=== PATIENT | female | born 1990 | race Caucasian/White ===

== ENCOUNTER 2022-08-17 13:04 | Inpatient (IN) | payer OTHER ==
[2022-08-17 14:17] VITALS: BMI 23.3
[2022-08-17] MEDS ORDERED: LOPERAMIDE HCL 2 MG CAPSULE PO PRN (15:56)
[2022-08-17] MEDS ORDERED: ACETAMINOPHEN 325 MG TABLET (FP) PO PRN (15:56)
[2022-08-17] MEDS ORDERED: DICYCLOMINE HCL 10 MG CAPSULE PO PRN (15:56)
[2022-08-17] MEDS ORDERED: MAGNESIUM CITRATE 300 ML BOTTLE PO PRN (15:56)
[2022-08-17] MEDS ORDERED: MAGNESIUM HYDROX 2400MG/30ML ORAL SUSPENSION 30 ML CUP PO PRN (15:56)
[2022-08-17] MEDS ORDERED: MAG HYDROX/AL HYDROX/SIMETH 30 ML UNIT-DOSE CUP PO PRN (15:56)
[2022-08-17] MEDS ORDERED: IBUPROFEN 400 MG TABLET (FP) PO PRN (15:56)
[2022-08-17] MEDS ORDERED: BENZOCAINE/MENTHOL (CHLORASEPTIC ) LOZENGE MM PRN (15:56)
[2022-08-17] MEDS ORDERED: ONDANSETRON *ODT* 4 MG TABLET SL PRN (15:56)
[2022-08-17] MEDS ORDERED: BISMUTH SUBSALICYLATE 524 MG/30 ML PO PRN (15:56)
[2022-08-17] MEDS ORDERED: NALOXONE HCL (KLOXXADO) 8 MG SPRAY NS PRN (15:56)
[2022-08-17] MEDS ORDERED: methaDONE HCL 10 MG TABLET (FOR DETOX USE ONLY) PO ONE (16:27)
[2022-08-17] MEDS ORDERED: cloNIDine HCL 0.1 MG TABLET PO PRN (16:27)
[2022-08-17] MEDS ORDERED: chlordiazePOXIDE HCL 25 MG CAPSULE PO PRN (16:27)
[2022-08-17] MEDS: METHOCARBAMOL 500 MG TABLET PO PRN (17:18)
[2022-08-17] MEDS: hydrOXYzine PAMOATE 25 MG CAPSULE (FP) PO SCH ×2 (17:18→22:15)
[2022-08-17] MEDS: chlordiazePOXIDE HCL 25 MG CAPSULE PO SCH ×2 (17:20→22:15)
[2022-08-17] MEDS: PRENATAL VITAMINS W/ FOLIC ACID TABLET (FP) PO SCH (17:25)
[2022-08-17] MEDS: NICOTINE 21 MG/24 HOURS TOPICAL PATCH TD SCH (18:08)
[2022-08-17] MEDS: NICOTINE 10 MG CARTRIDGE (INHALER) IH PRN (18:10)
[2022-08-17] MEDS ORDERED: GABAPENTIN 100 MG CAPSULE PO SCH (22:00)
[2022-08-17] MEDS: GABAPENTIN 300 MG CAPSULE PO SCH (22:15)
[2022-08-17] MEDS: THIAMINE HCL 100 MG TABLET (FP) PO SCH (22:15)
[2022-08-17] MEDS: MELATONIN 5 MG TABLETS PO SCH (22:15)
[2022-08-18] MEDS: hydrOXYzine PAMOATE 25 MG CAPSULE (FP) PO SCH ×4 (05:21→18:35)
[2022-08-18] MEDS: chlordiazePOXIDE HCL 25 MG CAPSULE PO SCH ×4 (05:21→22:57)
[2022-08-18] MEDS: GABAPENTIN 300 MG CAPSULE PO SCH ×3 (05:21→22:56)
[2022-08-18] MEDS: PRENATAL VITAMINS W/ FOLIC ACID TABLET (FP) PO SCH (10:19)
[2022-08-18] MEDS: NICOTINE 21 MG/24 HOURS TOPICAL PATCH TD SCH (10:21)
[2022-08-18 12:47] LABS: HEMOGLOBIN 10.5 GM/dL (10.7-15.3); MEAN CELL VOLUME 88.1 fl (80-96); MEAN PLT VOLUME 7.8 fl (7.5-11.1); PLATELET COUNT 356 10^3/uL (134-434); RBC 3.63 M/mm3 (3.60-5.2); RDW 14.9 % (11.6-15.6); WHITE BLOOD COUNT 5.5 K/mm3 (4.0-10.0)
[2022-08-18 12:59] LABS: ALBUMIN 2.7 g/dl (3.4-5.0); BLOOD UREA NITROGEN 13.4 mg/dL (7-18); CALCIUM 8.6 mg/dL (8.5-10.1)
[2022-08-18 13:02] LABS: CREATININE 0.7 mg/dL (0.55-1.3)
[2022-08-18 13:04] LABS: BILIRUBIN,TOTAL 0.1 mg/dL (0.2-1); TOT PROT 5.9 g/dl (6.4-8.2)
[2022-08-18] MEDS: METHOCARBAMOL 500 MG TABLET PO PRN (13:28)
[2022-08-18] MEDS: NICOTINE POLACRILEX 2 MG GUM BUC PRN (17:58)
[2022-08-18] MEDS ORDERED: HYDROXYCHLOROQUINE SO4 200 MG TABLET (FP) PO SCH ×2 (18:45)
[2022-08-18] MEDS: THIAMINE HCL 100 MG TABLET (FP) PO SCH (22:56)
[2022-08-18] MEDS: HYDROXYCHLOROQUINE SO4 200 MG TABLET (FP) PO SCH (22:57)
[2022-08-18] MEDS: MELATONIN 5 MG TABLETS PO SCH (22:57)
[2022-08-19] MEDS: GABAPENTIN 300 MG CAPSULE PO SCH ×3 (05:34→22:09)
[2022-08-19] MEDS: chlordiazePOXIDE HCL 25 MG CAPSULE PO SCH ×4 (05:34→22:09)
[2022-08-19] MEDS: METHOCARBAMOL 500 MG TABLET PO PRN ×3 (05:36→18:44)
[2022-08-19] MEDS ORDERED: methaDONE HCL 10 MG TABLET (FOR DETOX USE ONLY) PO ONE (10:00)
[2022-08-19] MEDS: PRENATAL VITAMINS W/ FOLIC ACID TABLET (FP) PO SCH (10:36)
[2022-08-19] MEDS: HYDROXYCHLOROQUINE SO4 200 MG TABLET (FP) PO SCH (10:37)
[2022-08-19] MEDS: NICOTINE 21 MG/24 HOURS TOPICAL PATCH TD SCH (10:38)
[2022-08-19] MEDS ORDERED: LINEZOLID 600 MG TABLET (RESTRICTED TO ID) PO SCH (11:30)
[2022-08-19] MEDS: NICOTINE POLACRILEX 2 MG GUM BUC PRN ×2 (11:36→15:32)
[2022-08-19] MEDS: MELATONIN 5 MG TABLETS PO SCH (22:09)
[2022-08-19] MEDS: THIAMINE HCL 100 MG TABLET (FP) PO SCH (22:09)
[2022-08-19] MEDS: LINEZOLID 600 MG TABLET (RESTRICTED TO ID) PO SCH (22:10)
[2022-08-20] MEDS: chlordiazePOXIDE HCL 10 MG CAPSULE PO SCH ×4 (05:43→22:45)
[2022-08-20] MEDS: GABAPENTIN 300 MG CAPSULE PO SCH ×3 (05:43→22:45)
[2022-08-20] MEDS: IBUPROFEN 600 MG TABLET (FP) PO PRN ×2 (10:22→19:00)
[2022-08-20] MEDS: METHOCARBAMOL 500 MG TABLET PO PRN ×2 (10:22→17:32)
[2022-08-20] MEDS: NICOTINE 21 MG/24 HOURS TOPICAL PATCH TD SCH (10:22)
[2022-08-20] MEDS: PRENATAL VITAMINS W/ FOLIC ACID TABLET (FP) PO SCH (10:22)
[2022-08-20] MEDS: HYDROXYCHLOROQUINE SO4 200 MG TABLET (FP) PO SCH (10:22)
[2022-08-20] MEDS: LINEZOLID 600 MG TABLET (RESTRICTED TO ID) PO SCH ×2 (10:22→22:46)
[2022-08-20] MEDS: NICOTINE 10 MG CARTRIDGE (INHALER) IH PRN (11:05)
[2022-08-20] MEDS: ACETAMINOPHEN 325 MG TABLET (FP) PO PRN (11:11)
[2022-08-20] MEDS: chlordiazePOXIDE HCL 10 MG CAPSULE PO PRN ×2 (12:17→19:04)
[2022-08-20] MEDS: MELATONIN 5 MG TABLETS PO SCH (22:45)
[2022-08-20] MEDS: THIAMINE HCL 100 MG TABLET (FP) PO SCH (22:45)
[2022-08-21] MEDS: GABAPENTIN 300 MG CAPSULE PO SCH ×3 (05:34→22:23)
[2022-08-21] MEDS: chlordiazePOXIDE HCL 10 MG CAPSULE PO SCH ×2 (05:34→17:08)
[2022-08-21] MEDS ORDERED: methaDONE HCL 10 MG TABLET (FOR DETOX USE ONLY) PO ONE (10:00)
[2022-08-21] MEDS: LINEZOLID 600 MG TABLET (RESTRICTED TO ID) PO SCH ×2 (10:12→22:23)
[2022-08-21] MEDS: METHOCARBAMOL 500 MG TABLET PO PRN ×2 (10:13→17:11)
[2022-08-21] MEDS: HYDROXYCHLOROQUINE SO4 200 MG TABLET (FP) PO SCH (10:13)
[2022-08-21] MEDS: ACETAMINOPHEN 325 MG TABLET (FP) PO PRN (10:14)
[2022-08-21] MEDS: NICOTINE 21 MG/24 HOURS TOPICAL PATCH TD SCH (10:16)
[2022-08-21] MEDS: NICOTINE POLACRILEX 2 MG GUM BUC PRN (10:30)
[2022-08-21] MEDS: PRENATAL VITAMINS W/ FOLIC ACID TABLET (FP) PO SCH (10:42)
[2022-08-21] MEDS: IBUPROFEN 600 MG TABLET (FP) PO PRN (13:51)
[2022-08-21] MEDS: hydrOXYzine PAMOATE 25 MG CAPSULE (FP) PO SCH (22:23)
[2022-08-21] MEDS: MELATONIN 5 MG TABLETS PO SCH (22:23)
[2022-08-21] MEDS: THIAMINE HCL 100 MG TABLET (FP) PO SCH (22:23)
[2022-08-21] MEDS ORDERED: MELATONIN 5 MG TABLETS PO PRN (23:30)
[2022-08-21] MEDS ORDERED: MELATONIN 5 MG TABLETS PO ONE (23:31)
[2022-08-22] MEDS: METHOCARBAMOL 500 MG TABLET PO PRN ×2 (00:04→10:02)
[2022-08-22] MEDS ORDERED: cloNIDine HCL 0.1 MG TABLET PO ONE (01:35)
[2022-08-22] MEDS ORDERED: chlordiazePOXIDE HCL 10 MG CAPSULE PO ONE (05:00)
[2022-08-22] MEDS: GABAPENTIN 300 MG CAPSULE PO SCH (05:33)
[2022-08-22 06:04] VITALS: TEMP 97.8
[2022-08-22 09:22] VITALS: BP 122/81; PULSE 68; RESP 17
[2022-08-22] MEDS: PRENATAL VITAMINS W/ FOLIC ACID TABLET (FP) PO SCH (10:01)
[2022-08-22] MEDS: LINEZOLID 600 MG TABLET (RESTRICTED TO ID) PO SCH (10:02)
[2022-08-22] MEDS: HYDROXYCHLOROQUINE SO4 200 MG TABLET (FP) PO SCH (10:02)
[2022-08-22] MEDS: NICOTINE 21 MG/24 HOURS TOPICAL PATCH TD SCH (10:04)
== END 2022-08-22 10:31 | disposition home or self-care (01) | DRG 773 ==
LOC: YASAS 13:04 → Y6N 16:22
PROVIDERS: ADMIT Allergy & Immunology; ATTEND Allergy & Immunology
PROC: HZ2ZZZZ Detoxification Services for Substance Abuse Treatment (ICD-10-PCS; principal; 2022-08-17)
DX: F11.23 Opioid dependence with withdrawal (principal); F13.20 Sedative, hypnotic or anxiolytic dependence, uncomplicated; F14.20 Cocaine dependence, uncomplicated; F15.10 Other stimulant abuse, uncomplicated; F17.210 Nicotine dependence, cigarettes, uncomplicated; F41.8 Other specified anxiety disorders; L10.0 Pemphigus vulgaris; M32.9 Systemic lupus erythematosus, unspecified; M06.9 Rheumatoid arthritis, unspecified; Z88.1 Allergy status to other antibiotic agents; Z91.013 Allergy to seafood
CPT/HCPCS: 36415; 71046-TC-FY; 80053; 81025; 85027; 86780; 93005; 93010; C9803-CS; U0003; U0005

== ENCOUNTER 2022-12-10 14:42 | Inpatient (IN) | payer OTHER ==
[2022-12-10 15:22] VITALS: BMI 25.0
[2022-12-10] MEDS ORDERED: NICOTINE POLACRILEX 2 MG GUM BUC PRN (17:32)
[2022-12-10] MEDS ORDERED: IBUPROFEN 400 MG TABLET (FP) PO PRN (17:32)
[2022-12-10] MEDS ORDERED: LOPERAMIDE HCL 2 MG CAPSULE PO PRN (17:32)
[2022-12-10] MEDS ORDERED: hydrOXYzine PAMOATE 25 MG CAPSULE (FP) PO PRN (17:32)
[2022-12-10] MEDS ORDERED: ACETAMINOPHEN 325 MG TABLET (FP) PO PRN ×2 (17:32)
[2022-12-10] MEDS ORDERED: ONDANSETRON *ODT* 4 MG TABLET SL PRN (17:32)
[2022-12-10] MEDS ORDERED: DICYCLOMINE HCL 10 MG CAPSULE PO PRN (17:32)
[2022-12-10] MEDS ORDERED: BENZOCAINE/MENTHOL (CHLORASEPTIC ) LOZENGE MM PRN (17:32)
[2022-12-10] MEDS ORDERED: cloNIDine HCL 0.1 MG TABLET PO PRN (17:32)
[2022-12-10] MEDS ORDERED: IBUPROFEN 600 MG TABLET (FP) PO PRN (17:32)
[2022-12-10] MEDS ORDERED: NICOTINE 10 MG CARTRIDGE (INHALER) IH PRN (17:32)
[2022-12-10] MEDS ORDERED: NALOXONE HCL (KLOXXADO) 8 MG SPRAY NS PRN (17:32)
[2022-12-10] MEDS ORDERED: MAGNESIUM HYDROX 2400MG/30ML ORAL SUSPENSION 30 ML CUP PO PRN (17:32)
[2022-12-10] MEDS ORDERED: MAG HYDROX/AL HYDROX/SIMETH 30 ML UNIT-DOSE CUP PO PRN (17:32)
[2022-12-10] MEDS ORDERED: POLYETHYLENE GLYCOL (HEALTHYLAX) 3350 17 GM PACKET PO PRN (17:32)
[2022-12-10] MEDS ORDERED: BISMUTH SUBSALICYLATE 524 MG/30 ML PO PRN (17:32)
[2022-12-10] MEDS: diazePAM 5 MG TABLET PO PRN (18:22)
[2022-12-10] MEDS ORDERED: methaDONE HCL 10 MG TABLET (FOR DETOX USE ONLY) PO ONE (19:00)
[2022-12-10] MEDS: METHOCARBAMOL 500 MG TABLET PO PRN (21:24)
[2022-12-10] MEDS ORDERED: MELATONIN 5 MG TABLETS PO SCH (22:00)
[2022-12-10] MEDS ORDERED: THIAMINE HCL 100 MG TABLET (FP) PO SCH (22:00)
[2022-12-11] MEDS: diazePAM 5 MG TABLET PO PRN (09:35)
[2022-12-11] MEDS: METHOCARBAMOL 500 MG TABLET PO PRN (09:35)
[2022-12-11 09:38] VITALS: BP 123/78; PULSE 80; RESP 18; TEMP 97.5
[2022-12-11] MEDS ORDERED: PRENATAL VITAMINS W/ FOLIC ACID TABLET (FP) PO SCH (10:00)
[2022-12-11] MEDS ORDERED: NICOTINE 21 MG/24 HOURS TOPICAL PATCH TD SCH (10:00)
[2022-12-11 11:24] LABS: HEMATOCRIT 30.9 % (32.4-45.2); HEMOGLOBIN 10.5 GM/dL (10.7-15.3); MCHC 33.9 g/dl (32.0-36.0); MEAN CELL VOLUME 85.5 fl (80-96); MEAN PLT VOLUME 7.8 fl (7.5-11.1); PLATELET COUNT 389 10^3/uL (134-434); RBC 3.61 M/mm3 (3.60-5.2); RDW 15.4 % (11.6-15.6); WHITE BLOOD COUNT 5.8 K/mm3 (4.0-10.0)
[2022-12-11 11:56] LABS: ALBUMIN 3.1 g/dl (3.4-5.0); BLOOD UREA NITROGEN 10.5 mg/dL (7-18); CALCIUM 8.6 mg/dL (8.5-10.1)
[2022-12-11 11:59] LABS: CREATININE 0.8 mg/dL (0.55-1.3)
[2022-12-11 12:01] LABS: TOT PROT 6.4 g/dl (6.4-8.2)
[2022-12-11 12:03] LABS: BILIRUBIN,TOTAL 0.5 mg/dL (0.2-1)
[2022-12-12] MEDS ORDERED: methaDONE HCL 10 MG TABLET (FOR DETOX USE ONLY) PO ONE (10:00)
[2022-12-14] MEDS ORDERED: methaDONE HCL 10 MG TABLET (FOR DETOX USE ONLY) PO ONE (10:00)
== END 2022-12-11 11:17 | disposition left against medical advice (07) | DRG 770 ==
LOC: YASAS 14:42 → Y6N 17:46
PROVIDERS: ADMIT Allergy & Immunology; ATTEND Surgery
PROC: HZ2ZZZZ Detoxification Services for Substance Abuse Treatment (ICD-10-PCS; principal; 2022-12-10)
DX: F11.23 Opioid dependence with withdrawal (principal); F14.20 Cocaine dependence, uncomplicated; F17.210 Nicotine dependence, cigarettes, uncomplicated; F51.05 Insomnia due to other mental disorder; F41.9 Anxiety disorder, unspecified; F32.A Depression, unspecified; M32.9 Systemic lupus erythematosus, unspecified; M06.9 Rheumatoid arthritis, unspecified; R76.11 Nonspecific reaction to tuberculin skin test without active tuberculosis; Z28.310 Unvaccinated for COVID-19; Z28.9 Immunization not carried out for unspecified reason; Z88.1 Allergy status to other antibiotic agents; Z91.013 Allergy to seafood
CPT/HCPCS: 36415; 80053; 81025; 85027; 86780; 87811; C9803-CS; U0003; U0005

== ENCOUNTER 2023-01-08 19:02 | Inpatient (IN) | payer OTHER ==
[2023-01-08 20:38] VITALS: BMI 25.9
[2023-01-08] MEDS ORDERED: IBUPROFEN 600 MG TABLET (FP) PO PRN (21:29)
[2023-01-08] MEDS ORDERED: LOPERAMIDE HCL 2 MG CAPSULE PO PRN (21:29)
[2023-01-08] MEDS ORDERED: MAG HYDROX/AL HYDROX/SIMETH 30 ML UNIT-DOSE CUP PO PRN (21:29)
[2023-01-08] MEDS ORDERED: cloNIDine HCL 0.1 MG TABLET PO PRN (21:29)
[2023-01-08] MEDS ORDERED: BISMUTH SUBSALICYLATE 524 MG/30 ML PO PRN (21:29)
[2023-01-08] MEDS ORDERED: ACETAMINOPHEN 325 MG TABLET (FP) PO PRN ×2 (21:29)
[2023-01-08] MEDS ORDERED: BENZOCAINE/MENTHOL (CHLORASEPTIC ) LOZENGE MM PRN (21:29)
[2023-01-08] MEDS ORDERED: DICYCLOMINE HCL 10 MG CAPSULE PO PRN (21:29)
[2023-01-08] MEDS ORDERED: POLYETHYLENE GLYCOL (HEALTHYLAX) 3350 17 GM PACKET PO PRN (21:29)
[2023-01-08] MEDS ORDERED: ONDANSETRON *ODT* 4 MG TABLET SL PRN (21:29)
[2023-01-08] MEDS ORDERED: hydrOXYzine PAMOATE 25 MG CAPSULE (FP) PO PRN (21:29)
[2023-01-08] MEDS ORDERED: NICOTINE 10 MG CARTRIDGE (INHALER) IH PRN (21:29)
[2023-01-08] MEDS ORDERED: MAGNESIUM HYDROX 2400MG/30ML ORAL SUSPENSION 30 ML CUP PO PRN (21:29)
[2023-01-08] MEDS ORDERED: NALOXONE HCL (KLOXXADO) 8 MG SPRAY NS PRN (21:29)
[2023-01-08] MEDS ORDERED: IBUPROFEN 400 MG TABLET (FP) PO PRN (21:29)
[2023-01-08] MEDS ORDERED: methaDONE HCL 10 MG TABLET (FOR DETOX USE ONLY) PO ONE (21:45)
[2023-01-08] MEDS ORDERED: methaDONE HCL 10 MG TABLET (FOR DETOX USE ONLY) ONE (22:00)
[2023-01-08] MEDS: THIAMINE HCL 100 MG TABLET (FP) PO SCH (23:01)
[2023-01-08] MEDS: MELATONIN 5 MG TABLETS PO SCH (23:03)
[2023-01-09] MEDS ORDERED: NICOTINE 21 MG/24 HOURS TOPICAL PATCH TD SCH (10:00)
[2023-01-09] MEDS ORDERED: PRENATAL VITAMINS W/ FOLIC ACID TABLET (FP) PO SCH (10:00)
[2023-01-09] MEDS: METHOCARBAMOL 500 MG TABLET PO PRN ×2 (10:18→17:50)
[2023-01-09] MEDS: diazePAM 5 MG TABLET PO PRN ×2 (10:18→17:58)
[2023-01-09 12:12] LABS: HEMATOCRIT 32.3 % (32.4-45.2); HEMOGLOBIN 11.2 GM/dL (10.7-15.3); MCH 29.1 pg (25.7-33.7); MCHC 34.6 g/dl (32.0-36.0); MEAN CELL VOLUME 84.1 fl (80-96); MEAN PLT VOLUME 7.2 fl (7.5-11.1); PLATELET COUNT 454 10^3/uL (134-434); RBC 3.83 M/mm3 (3.60-5.2); RDW 15.1 % (11.6-15.6); WHITE BLOOD COUNT 8.7 K/mm3 (4.0-10.0)
[2023-01-09 12:15] LABS: CALCIUM 9.2 mg/dL (8.5-10.1)
[2023-01-09 12:16] LABS: ALBUMIN 3.4 g/dl (3.4-5.0); BLOOD UREA NITROGEN 6.9 mg/dL (7-18)
[2023-01-09 12:17] LABS: CREATININE 0.8 mg/dL (0.55-1.3)
[2023-01-09 12:18] LABS: BILIRUBIN,TOTAL 0.2 mg/dL (0.2-1); TOT PROT 7.3 g/dl (6.4-8.2)
[2023-01-09] MEDS ORDERED: HYDROXYCHLOROQUINE SO4 200 MG TABLET (FP) PO SCH (12:30)
[2023-01-09] MEDS: NICOTINE POLACRILEX 2 MG GUM BUC PRN ×2 (13:22→17:59)
[2023-01-09] MEDS: GABAPENTIN 300 MG CAPSULE PO SCH ×2 (14:02→22:42)
[2023-01-09] MEDS: THIAMINE HCL 100 MG TABLET (FP) PO SCH (22:42)
[2023-01-09] MEDS: MELATONIN 5 MG TABLETS PO SCH (22:42)
[2023-01-10] MEDS: GABAPENTIN 300 MG CAPSULE PO SCH (05:19)
[2023-01-10] MEDS: diazePAM 5 MG TABLET PO PRN (05:22)
[2023-01-10 06:42] VITALS: BP 109/68; PULSE 73; RESP 17; TEMP 97.3
[2023-01-10] MEDS ORDERED: methaDONE HCL 10 MG TABLET (FOR DETOX USE ONLY) PO ONE (10:00)
[2023-01-12] MEDS ORDERED: methaDONE HCL 10 MG TABLET (FOR DETOX USE ONLY) PO ONE (10:00)
== END 2023-01-10 09:41 | disposition left against medical advice (07) | DRG 770 ==
LOC: YASAS 19:02 → Y6N 21:41
PROVIDERS: ADMIT Allergy & Immunology; ATTEND Surgery
PROC: HZ2ZZZZ Detoxification Services for Substance Abuse Treatment (ICD-10-PCS; principal; 2023-01-08)
DX: F11.23 Opioid dependence with withdrawal (principal); F13.20 Sedative, hypnotic or anxiolytic dependence, uncomplicated; F14.20 Cocaine dependence, uncomplicated; F17.210 Nicotine dependence, cigarettes, uncomplicated; F19.282 Other psychoactive substance dependence with psychoactive substance-induced sleep disorder; F31.9 Bipolar disorder, unspecified; M06.9 Rheumatoid arthritis, unspecified; K25.9 Gastric ulcer, unspecified as acute or chronic, without hemorrhage or perforation; Z88.1 Allergy status to other antibiotic agents; Z91.013 Allergy to seafood
CPT/HCPCS: 36415; 80053; 81025; 85027; 86780; C9803-CS; U0003; U0005

== ENCOUNTER 2023-12-15 11:26 | Inpatient (IN) | payer OTHER ==
[2023-12-15 11:51] VITALS: BMI 24.1
[2023-12-15] MEDS ORDERED: guaiFENesin 600 MG TABLET.ER (FP) PO PRN (12:15)
[2023-12-15] MEDS ORDERED: DICYCLOMINE HCL 10 MG CAPSULE PO PRN (12:15)
[2023-12-15] MEDS ORDERED: NICOTINE POLACRILEX 2 MG LOZENGE BC PRN (12:15)
[2023-12-15] MEDS ORDERED: NALOXONE HCL 0.4 MG/ML VIAL IM PRN (12:15)
[2023-12-15] MEDS ORDERED: BISMUTH SUBSALICYLATE 524 MG/30 ML PO PRN (12:15)
[2023-12-15] MEDS ORDERED: ONDANSETRON *ODT* 4 MG TABLET SL PRN (12:15)
[2023-12-15] MEDS ORDERED: ACETAMINOPHEN 325 MG TABLET (FP) PO PRN (12:15)
[2023-12-15] MEDS ORDERED: METHOCARBAMOL 500 MG TABLET PO PRN (12:15)
[2023-12-15] MEDS ORDERED: LOPERAMIDE HCL 2 MG CAPSULE PO PRN (12:15)
[2023-12-15] MEDS ORDERED: NALOXONE HCL (KLOXXADO) 8 MG SPRAY NS PRN (12:15)
[2023-12-15] MEDS ORDERED: BENZONATATE 200 MG CAPSULE PO PRN (12:15)
[2023-12-15] MEDS ORDERED: MAG HYDROX/AL HYDROX/SIMETH 30 ML UNIT-DOSE CUP PO PRN (12:15)
[2023-12-15] MEDS ORDERED: MAGNESIUM HYDROX 2400MG/30ML ORAL SUSPENSION 30 ML CUP PO PRN (12:15)
[2023-12-15] MEDS ORDERED: IBUPROFEN 600 MG TABLET (FP) PO PRN (12:15)
[2023-12-15] MEDS ORDERED: IBUPROFEN 400 MG TABLET (FP) PO PRN (12:15)
[2023-12-15] MEDS ORDERED: P-EPHED 60MG/TRIPROLIDI 2.5MG TABLET PO PRN (12:15)
[2023-12-15] MEDS ORDERED: BENZOCAINE/MENTHOL (CHLORASEPTIC ) LOZENGE MM PRN (12:15)
[2023-12-15] MEDS ORDERED: POLYETHYLENE GLYCOL (HEALTHYLAX) 3350 17 GM PACKET PO PRN (12:15)
[2023-12-15] MEDS: HYDROXYCHLOROQUINE SO4 200 MG TABLET (FP) PO SCH ×2 (14:46→22:25)
[2023-12-15] MEDS ORDERED: methaDONE HCL 10 MG TABLET (FOR DETOX USE ONLY) PO ONE (17:22)
[2023-12-15] MEDS ORDERED: cloNIDine HCL 0.1 MG TABLET PO PRN (17:22)
[2023-12-15] MEDS: diazePAM 5 MG TABLET PO PRN ×2 (18:07→22:26)
[2023-12-15] MEDS: MELATONIN 5 MG TABLETS PO SCH (22:23)
[2023-12-15] MEDS: THIAMINE HCL 100 MG TABLET (FP) PO SCH (22:24)
[2023-12-15] MEDS: GABAPENTIN 300 MG CAPSULE PO SCH (22:27)
[2023-12-16] MEDS: GABAPENTIN 300 MG CAPSULE PO SCH ×2 (09:49→22:46)
[2023-12-16] MEDS: HYDROXYCHLOROQUINE SO4 200 MG TABLET (FP) PO SCH ×2 (09:50→22:46)
[2023-12-16] MEDS: PRENATAL VITAMINS W/ FOLIC ACID TABLET (FP) PO SCH (09:51)
[2023-12-16 10:39] LABS: HEMATOCRIT 33.7 % (32.4-45.2); HEMOGLOBIN 10.8 GM/dL (10.7-15.3); MCH 27.1 pg (25.7-33.7); MEAN CELL VOLUME 84.7 fl (80-96); MEAN PLT VOLUME 7.5 fl (7.5-11.1); PLATELET COUNT 376 10^3/uL (134-434); RBC 3.97 M/mm3 (3.60-5.2); WHITE BLOOD COUNT 6.9 K/mm3 (4.0-10.0)
[2023-12-16 11:17] LABS: POTASSIUM 4.4 mmol/L (3.5-5.1)
[2023-12-16 11:39] LABS: CALCIUM 8.8 mg/dL (8.5-10.1)
[2023-12-16 11:40] LABS: BLOOD UREA NITROGEN 12.9 mg/dL (7-18)
[2023-12-16 11:44] LABS: BILIRUBIN,TOTAL 0.2 mg/dL (0.2-1); CREATININE 0.8 mg/dL (0.55-1.3)
[2023-12-16 11:45] LABS: TOT PROT 6.4 g/dl (6.4-8.2)
[2023-12-16] MEDS: diazePAM 5 MG TABLET PO PRN ×3 (13:09→22:47)
[2023-12-16] MEDS: THIAMINE HCL 100 MG TABLET (FP) PO SCH (22:46)
[2023-12-16] MEDS: MELATONIN 5 MG TABLETS PO SCH (22:46)
[2023-12-17 09:44] VITALS: PULSE 90; RESP 18
[2023-12-17] MEDS: GABAPENTIN 300 MG CAPSULE PO SCH (09:46)
[2023-12-17] MEDS: PRENATAL VITAMINS W/ FOLIC ACID TABLET (FP) PO SCH (09:46)
[2023-12-17] MEDS: HYDROXYCHLOROQUINE SO4 200 MG TABLET (FP) PO SCH (09:47)
[2023-12-17] MEDS: diazePAM 5 MG TABLET PO PRN (09:48)
[2023-12-17] MEDS ORDERED: methaDONE HCL 10 MG TABLET (FOR DETOX USE ONLY) PO ONE (10:00)
[2023-12-17 13:22] VITALS: BP 138/83; TEMP 97.3
[2023-12-19] MEDS ORDERED: methaDONE HCL 10 MG TABLET (FOR DETOX USE ONLY) PO ONE (10:00)
== END 2023-12-17 14:15 | disposition left against medical advice (07) | DRG 770 ==
LOC: YASAS 11:26 → Y6N 12:45
PROVIDERS: ADMIT Allergy & Immunology; ATTEND Allergy & Immunology
PROC: HZ2ZZZZ Detoxification Services for Substance Abuse Treatment (ICD-10-PCS; principal; 2023-12-15)
DX: F11.23 Opioid dependence with withdrawal (principal); F14.20 Cocaine dependence, uncomplicated; F13.20 Sedative, hypnotic or anxiolytic dependence, uncomplicated; F17.210 Nicotine dependence, cigarettes, uncomplicated; F32.A Depression, unspecified; M06.00 Rheumatoid arthritis without rheumatoid factor, unspecified site; Z20.822 Contact with and (suspected) exposure to COVID-19; Z28.310 Unvaccinated for COVID-19; Z28.9 Immunization not carried out for unspecified reason; Z87.11 Personal history of peptic ulcer disease; Z86.11 Personal history of tuberculosis; Z56.0 Unemployment, unspecified; Z59.00 Homelessness unspecified; Z88.1 Allergy status to other antibiotic agents; Z88.8 Allergy status to other drugs, medicaments and biological substances
CPT/HCPCS: 36415; 80053; 81025; 85027; 86780; 87635; 87811; Q0162

== ENCOUNTER 2024-01-28 21:50 | Inpatient (IN) | payer OTHER ==
[2024-01-28 22:31] VITALS: BMI 24.1
[2024-01-29] MEDS ORDERED: guaiFENesin 600 MG TABLET.ER (FP) PO PRN (00:27)
[2024-01-29] MEDS ORDERED: ONDANSETRON *ODT* 4 MG TABLET SL PRN (00:27)
[2024-01-29] MEDS ORDERED: NICOTINE POLACRILEX 2 MG LOZENGE BC PRN (00:27)
[2024-01-29] MEDS ORDERED: LOPERAMIDE HCL 2 MG CAPSULE PO PRN (00:27)
[2024-01-29] MEDS ORDERED: MAG HYDROX/AL HYDROX/SIMETH 30 ML UNIT-DOSE CUP PO PRN (00:27)
[2024-01-29] MEDS ORDERED: NALOXONE HCL 0.4 MG/ML VIAL IM PRN (00:27)
[2024-01-29] MEDS ORDERED: NALOXONE HCL (KLOXXADO) 8 MG SPRAY NS PRN (00:27)
[2024-01-29] MEDS ORDERED: BENZONATATE 200 MG CAPSULE PO PRN (00:27)
[2024-01-29] MEDS ORDERED: MAGNESIUM HYDROX 2400MG/30ML ORAL SUSPENSION 30 ML CUP PO PRN (00:27)
[2024-01-29] MEDS ORDERED: BENZOCAINE/MENTHOL (CHLORASEPTIC ) LOZENGE MM PRN (00:27)
[2024-01-29] MEDS ORDERED: POLYETHYLENE GLYCOL (HEALTHYLAX) 3350 17 GM PACKET PO PRN (00:27)
[2024-01-29] MEDS ORDERED: cloNIDine HCL 0.1 MG TABLET PO PRN (09:55)
[2024-01-29] MEDS: methaDONE HCL 10 MG TABLET (FOR DETOX USE ONLY) PO ONE (10:21)
[2024-01-29] MEDS: diazePAM 5 MG TABLET PO SCH (10:21)
[2024-01-29] MEDS: NICOTINE 21 MG/24 HOURS TOPICAL PATCH TD SCH (10:21)
[2024-01-29] MEDS: PRENATAL VITAMINS W/ FOLIC ACID TABLET (FP) PO SCH (10:21)
[2024-01-29 12:00] LABS: HEMATOCRIT 28.6 % (32.4-45.2); HEMOGLOBIN 9.5 GM/dL (10.7-15.3); MCH 26.2 pg (25.7-33.7); MCHC 33.3 g/dl (32.0-36.0); MEAN CELL VOLUME 78.5 fl (80-96); MEAN PLT VOLUME 7.4 fl (7.5-11.1); PLATELET COUNT 396 10^3/uL (134-434); RBC 3.64 M/mm3 (3.60-5.2); RDW 15.4 % (11.6-15.6); WHITE BLOOD COUNT 5.8 K/mm3 (4.0-10.0)
[2024-01-29 12:19] LABS: CHLORIDE 107 mmol/L (98-107); POTASSIUM 4.3 mmol/L (3.5-5.1); SODIUM 141 mmol/L (136-145)
[2024-01-29 12:24] LABS: ALBUMIN 2.8 g/dl (3.4-5.0); ANION GAP 5 mmol/L (4-13); BLOOD UREA NITROGEN 11.8 mg/dL (7-18); CALCIUM 8.4 mg/dL (8.5-10.1); CO2 29 mmol/L (21-32); GLUCOSE,RANDOM 92 mg/dL (74-106)
[2024-01-29 12:27] LABS: CREATININE 0.8 mg/dL (0.55-1.3); SGOT/AST 11 U/L (15-37); SGPT/ALT 14 U/L (13-61)
[2024-01-29 12:29] LABS: BILIRUBIN,TOTAL 0.2 mg/dL (0.2-1); TOT PROT 6.5 g/dl (6.4-8.2)
[2024-01-29 12:30] LABS: ALK PHOS 68 U/L (45-117)
[2024-01-29] MEDS: hydrOXYzine PAMOATE 25 MG CAPSULE (FP) PO PRN (19:12)
[2024-01-29] MEDS: THIAMINE HCL 100 MG TABLET (FP) PO SCH (22:11)
[2024-01-29] MEDS: MELATONIN 5 MG TABLETS PO SCH (22:11)
[2024-01-29] MEDS: GABAPENTIN 100 MG CAPSULE PO SCH (22:11)
[2024-01-30] MEDS: IBUPROFEN 600 MG TABLET (FP) PO PRN (17:01)
[2024-01-30] MEDS: IBUPROFEN 400 MG TABLET (FP) PO PRN (22:02)
[2024-01-31] MEDS: diazePAM 5 MG TABLET PO SCH (05:30)
[2024-01-31] MEDS: methaDONE HCL 10 MG TABLET (FOR DETOX USE ONLY) PO ONE (09:52)
[2024-01-31 12:11] LABS: HEMATOCRIT 30.4 % (32.4-45.2); HEMOGLOBIN 9.8 GM/dL (10.7-15.3); MCH 25.6 pg (25.7-33.7); MCHC 32.4 g/dl (32.0-36.0); MEAN PLT VOLUME 7.1 fl (7.5-11.1); PLATELET COUNT 423 10^3/uL (134-434); RBC 3.84 M/mm3 (3.60-5.2); RDW 15.3 % (11.6-15.6); WHITE BLOOD COUNT 4.7 K/mm3 (4.0-10.0)
[2024-01-31] MEDS: HYDROXYCHLOROQUINE SO4 200 MG TABLET (FP) PO SCH (15:20)
[2024-01-31] MEDS: diazePAM 5 MG TABLET PO PRN (16:33)
[2024-01-31] MEDS: FERROUS SO4 325 MG TABLET (FP) PO SCH (17:12)
[2024-02-01] MEDS: diazePAM 5 MG TABLET PO SCH (05:43)
[2024-02-01] MEDS: ACETAMINOPHEN 325 MG TABLET (FP) PO PRN (10:07)
[2024-02-01] MEDS: BISMUTH SUBSALICYLATE 524 MG/30 ML PO PRN (16:21)
[2024-02-01] MEDS: DICYCLOMINE HCL 10 MG CAPSULE PO PRN (20:43)
[2024-02-02] MEDS: diazePAM 5 MG TABLET PO ONE (05:27)
[2024-02-02] MEDS: methaDONE HCL 10 MG TABLET (FOR DETOX USE ONLY) PO ONE (09:43)
[2024-02-02 13:04] VITALS: BP 124/76; RESP 18; TEMP 98.4
[2024-02-02 13:12] VITALS: PULSE 90
== END 2024-02-02 14:50 | disposition home or self-care (01) | DRG 773 ==
LOC: YASAS 21:50 → Y6N 01-29 02:54 → Y3N 01-29 03:48
PROVIDERS: ADMIT Allergy & Immunology; ATTEND Family Medicine Addiction Medicine
PROC: HZ2ZZZZ Detoxification Services for Substance Abuse Treatment (ICD-10-PCS; principal; 2024-01-29)
DX: F11.23 Opioid dependence with withdrawal (principal); F13.230 Sedative, hypnotic or anxiolytic dependence with withdrawal, uncomplicated; F14.20 Cocaine dependence, uncomplicated; F17.210 Nicotine dependence, cigarettes, uncomplicated; F41.9 Anxiety disorder, unspecified; F32.A Depression, unspecified; D50.9 Iron deficiency anemia, unspecified; M06.9 Rheumatoid arthritis, unspecified; B18.2 Chronic viral hepatitis C; Z62.810 Personal history of physical and sexual abuse in childhood; Z91.410 Personal history of adult physical and sexual abuse; Z63.0 Problems in relationship with spouse or partner; Z63.8 Other specified problems related to primary support group; Z88.1 Allergy status to other antibiotic agents
CPT/HCPCS: 36415; 80053; 80305; 80307; 81025; 82607; 82746; 83540; 83550; 85027; 85045; 86780; 87635; 93005; 93010

== ENCOUNTER 2024-04-01 00:58 | Inpatient (IN) | payer OTHER ==
[2024-04-01 02:04] VITALS: BMI 22.9
[2024-04-01] MEDS ORDERED: IBUPROFEN 400 MG TABLET (FP) PO PRN (02:53)
[2024-04-01] MEDS ORDERED: BISMUTH SUBSALICYLATE 524 MG/30 ML PO PRN (02:53)
[2024-04-01] MEDS ORDERED: guaiFENesin 600 MG TABLET.ER (FP) PO PRN (02:53)
[2024-04-01] MEDS ORDERED: BENZONATATE 200 MG CAPSULE PO PRN (02:53)
[2024-04-01] MEDS ORDERED: POLYETHYLENE GLYCOL (HEALTHYLAX) 3350 17 GM PACKET PO PRN (02:53)
[2024-04-01] MEDS ORDERED: LOPERAMIDE HCL 2 MG CAPSULE PO PRN (02:53)
[2024-04-01] MEDS ORDERED: NALOXONE HCL (KLOXXADO) 8 MG SPRAY NS PRN (02:53)
[2024-04-01] MEDS ORDERED: DICYCLOMINE HCL 10 MG CAPSULE PO PRN (02:53)
[2024-04-01] MEDS ORDERED: NICOTINE POLACRILEX 2 MG GUM BUC PRN (02:53)
[2024-04-01] MEDS ORDERED: MAGNESIUM HYDROX 2400MG/30ML ORAL SUSPENSION 30 ML CUP PO PRN (02:53)
[2024-04-01] MEDS ORDERED: BENZOCAINE/MENTHOL (CHLORASEPTIC ) LOZENGE MM PRN (02:53)
[2024-04-01] MEDS ORDERED: MAG HYDROX/AL HYDROX/SIMETH 30 ML UNIT-DOSE CUP PO PRN (02:53)
[2024-04-01] MEDS ORDERED: NALOXONE HCL 0.4 MG/ML VIAL IM PRN (02:53)
[2024-04-01] MEDS ORDERED: ONDANSETRON *ODT* 4 MG TABLET SL PRN (02:53)
[2024-04-01] MEDS: METHOCARBAMOL 500 MG TABLET PO PRN (04:06)
[2024-04-01] MEDS: hydrOXYzine PAMOATE 25 MG CAPSULE (FP) PO PRN (04:06)
[2024-04-01] MEDS: IBUPROFEN 600 MG TABLET (FP) PO PRN (04:06)
[2024-04-01] MEDS: PRENATAL VITAMINS W/ FOLIC ACID TABLET (FP) PO SCH (10:04)
[2024-04-01] MEDS: NICOTINE 21 MG/24 HOURS TOPICAL PATCH TD SCH (10:04)
[2024-04-01] MEDS: GABAPENTIN 300 MG CAPSULE PO SCH (11:15)
[2024-04-01] MEDS: methaDONE HCL 10 MG TABLET PO ONE (11:16)
[2024-04-01] MEDS ORDERED: methaDONE HCL 10 MG TABLET PO PRN (13:00)
[2024-04-01] MEDS ORDERED: MELATONIN 5 MG TABLETS PO SCH (22:00)
[2024-04-01] MEDS: traZODone HCL 100 MG TABLET (FP) PO SCH (22:30)
[2024-04-01] MEDS: THIAMINE 100 MG TABLET PO SCH (22:31)
[2024-04-02] MEDS: methaDONE 40 MG, methaDONE 10 MG PO ONE (09:22)
[2024-04-02 11:43] LABS: POTASSIUM 5.1 mmol/L (3.5-5.1)
[2024-04-02 11:50] LABS: CALCIUM 8.4 mg/dL (8.5-10.1)
[2024-04-02 11:51] LABS: BLOOD UREA NITROGEN 31.2 mg/dL (7-18)
[2024-04-02 11:54] LABS: CREATININE 1.3 mg/dL (0.55-1.3)
[2024-04-02 11:56] LABS: BILIRUBIN,TOTAL 0.2 mg/dL (0.2-1); TOT PROT 6.8 g/dl (6.4-8.2)
[2024-04-02 11:57] LABS: HEMATOCRIT 27.6 % (32.4-45.2); HEMOGLOBIN 8.3 GM/dL (10.7-15.3); MCHC 30.2 g/dl (32.0-36.0); MEAN CELL VOLUME 76.4 fl (80-96); PLATELET COUNT 402 10^3/uL (134-434); RBC 3.61 M/mm3 (3.60-5.2); RDW 16.9 % (11.6-15.6); WHITE BLOOD COUNT 5.9 K/mm3 (4.0-10.0)
[2024-04-02] MEDS: HYDROXYCHLOROQUINE SO4 200 MG TABLET (FP) PO SCH (22:10)
[2024-04-03] MEDS: methaDONE 40 MG, methaDONE 20 MG PO ONE (09:10)
[2024-04-03] MEDS: FERROUS SO4 325 MG TABLET (FP) PO SCH (12:12)
[2024-04-04] MEDS: methaDONE 40 MG, methaDONE 30 MG PO ONE (09:09)
[2024-04-05] MEDS: methaDONE HCL 40 MG DISPERSABLE TABLET PO ONE (09:38)
[2024-04-05] MEDS: ACETAMINOPHEN 325 MG TABLET (FP) PO PRN (11:32)
[2024-04-05 12:54] LABS: POTASSIUM 3.8 mmol/L (3.5-5.1)
[2024-04-05 13:01] LABS: ALBUMIN 3.3 g/dl (3.4-5.0); BLOOD UREA NITROGEN 13.1 mg/dL (7-18)
[2024-04-05 13:05] LABS: CREATININE 1.3 mg/dL (0.55-1.3); PHOSPHOROUS 3.8 mg/dL (2.5-4.9)
[2024-04-05 17:39] VITALS: RESP 16
[2024-04-06] MEDS: methaDONE 80 MG, methaDONE 10 MG PO ONE (09:10)
[2024-04-06 09:14] VITALS: BP 140/99; PULSE 97; TEMP 98.2
[2024-04-07] MEDS ORDERED: methaDONE 80 MG, methaDONE 10 MG PO SCH (10:00)
== END 2024-04-06 11:06 | disposition left against medical advice (07) | DRG 770 ==
LOC: YASAS 00:58 → Y6N 03:42
PROVIDERS: ADMIT Allergy & Immunology; ATTEND Allergy & Immunology
PROC: HZ2ZZZZ Detoxification Services for Substance Abuse Treatment (ICD-10-PCS; principal; 2024-04-01)
DX: F11.23 Opioid dependence with withdrawal (principal); F13.20 Sedative, hypnotic or anxiolytic dependence, uncomplicated; F14.20 Cocaine dependence, uncomplicated; F17.210 Nicotine dependence, cigarettes, uncomplicated; F33.8 Other recurrent depressive disorders; F19.980 Other psychoactive substance use, unspecified with psychoactive substance-induced anxiety disorder; F19.982 Other psychoactive substance use, unspecified with psychoactive substance-induced sleep disorder; M06.00 Rheumatoid arthritis without rheumatoid factor, unspecified site; I73.00 Raynaud's syndrome without gangrene; K21.9 Gastro-esophageal reflux disease without esophagitis; Z28.310 Unvaccinated for COVID-19; Z56.0 Unemployment, unspecified; Z59.00 Homelessness unspecified
CPT/HCPCS: 36415; 80053; 80069; 80305; 80307; 81025; 85027; 86780; 93005; 93010

== ENCOUNTER 2024-05-19 23:20 | Inpatient (IN) | payer OTHER ==
[2024-05-19 23:55] VITALS: BMI 20.7
[2024-05-20] MEDS ORDERED: DICYCLOMINE HCL 10 MG CAPSULE PO PRN (00:17)
[2024-05-20] MEDS ORDERED: guaiFENesin 600 MG TABLET.ER (FP) PO PRN (00:17)
[2024-05-20] MEDS ORDERED: ONDANSETRON *ODT* 4 MG TABLET SL PRN (00:17)
[2024-05-20] MEDS ORDERED: IBUPROFEN 400 MG TABLET (FP) PO PRN (00:17)
[2024-05-20] MEDS ORDERED: POLYETHYLENE GLYCOL (HEALTHYLAX) 3350 17 GM PACKET PO PRN (00:17)
[2024-05-20] MEDS ORDERED: NALOXONE HCL 0.4 MG/ML VIAL IM PRN (00:17)
[2024-05-20] MEDS ORDERED: NALOXONE (NARCAN) HCL 4 MG/0.1 ML SPRAY NS PRN (00:17)
[2024-05-20] MEDS ORDERED: LOPERAMIDE HCL 2 MG CAPSULE PO PRN (00:17)
[2024-05-20] MEDS ORDERED: BENZONATATE 200 MG CAPSULE PO PRN (00:17)
[2024-05-20] MEDS: METHOCARBAMOL 500 MG TABLET PO PRN (01:08)
[2024-05-20] MEDS: hydrOXYzine PAMOATE 25 MG CAPSULE (FP) PO PRN (01:08)
[2024-05-20] MEDS: methaDONE HCL 10 MG TABLET PO ONE (10:43)
[2024-05-20] MEDS: PRENATAL VITAMINS W/ FOLIC ACID TABLET (FP) PO SCH (10:44)
[2024-05-20] MEDS: NICOTINE 21 MG/24 HOURS TOPICAL PATCH TD SCH (10:44)
[2024-05-20] MEDS: diazePAM 5 MG TABLET PO PRN (10:44)
[2024-05-20] MEDS: THIAMINE 100 MG TABLET PO SCH (22:54)
[2024-05-20] MEDS: MELATONIN 5 MG TABLETS PO SCH (22:54)
[2024-05-21] MEDS: methaDONE HCL 40 MG DISPERSABLE TABLET PO ONE (09:45)
[2024-05-21 11:59] LABS: POTASSIUM 3.8 mmol/L (3.5-5.1)
[2024-05-21 12:03] LABS: ALBUMIN 3.4 g/dl (3.4-5.0); BLOOD UREA NITROGEN 25.3 mg/dL (7-18); CALCIUM 9.1 mg/dL (8.5-10.1)
[2024-05-21 12:06] LABS: CREATININE 1.2 mg/dL (0.55-1.3)
[2024-05-21 12:08] LABS: BILIRUBIN,TOTAL 0.4 mg/dL (0.2-1); TOT PROT 7.1 g/dl (6.4-8.2)
[2024-05-21 12:22] LABS: HEMATOCRIT 30.7 % (32.4-45.2); HEMOGLOBIN 10.3 GM/dL (10.7-15.3); MCH 26.5 pg (25.7-33.7); MCHC 33.5 g/dl (32.0-36.0); MEAN CELL VOLUME 79.2 fl (80-96); MEAN PLT VOLUME 8.3 fl (7.5-11.1); PLATELET COUNT 449 10^3/uL (134-434); RBC 3.88 M/mm3 (3.60-5.2); RDW 17.6 % (11.6-15.6)
[2024-05-21] MEDS: GABAPENTIN 300 MG CAPSULE PO SCH (14:44)
[2024-05-21] MEDS: TOPIRAMATE 25 MG TABLET PO ONE (14:44)
[2024-05-21] MEDS: traZODone HCL 50 MG TABLET (FP) PO SCH (22:30)
[2024-05-21] MEDS: TOPIRAMATE 25 MG TABLET PO SCH (22:31)
[2024-05-22] MEDS ORDERED: cloNIDine HCL 0.1 MG TABLET PO PRN
[2024-05-22] MEDS ORDERED: methaDONE HCL 40 MG DISPERSABLE TABLET PO ONE (10:00)
[2024-05-22] MEDS: methaDONE 40 MG, methaDONE 10 MG PO ONE (10:00)
[2024-05-22] MEDS: ACETAMINOPHEN 325 MG TABLET (FP) PO PRN (11:26)
[2024-05-22] MEDS: NICOTINE POLACRILEX 4 MG GUM BUC PRN (14:12)
[2024-05-23] MEDS ORDERED: methaDONE HCL 40 MG DISPERSABLE TABLET PO ONE (10:00)
[2024-05-23] MEDS: methaDONE 40 MG, methaDONE 20 MG PO ONE (10:39)
[2024-05-23] MEDS: MAG HYDROX/AL HYDROX/SIMETH 30 ML UNIT-DOSE CUP PO PRN (10:51)
[2024-05-24] MEDS: MAGNESIUM HYDROX 2400MG/30ML ORAL SUSPENSION 30 ML CUP PO PRN (08:56)
[2024-05-24] MEDS: methaDONE 40 MG, methaDONE 30 MG PO ONE (09:24)
[2024-05-24] MEDS ORDERED: methaDONE HCL 40 MG DISPERSABLE TABLET PO ONE (10:00)
[2024-05-24] MEDS: BISMUTH SUBSALICYLATE 524 MG/30 ML PO PRN (22:23)
[2024-05-25] MEDS: methaDONE HCL 40 MG DISPERSABLE TABLET PO ONE (10:59)
[2024-05-25] MEDS: IBUPROFEN 600 MG TABLET (FP) PO PRN (13:41)
[2024-05-25] MEDS ORDERED: guaiFENesin 600 MG TABLET.ER (FP) PO ONE (17:35)
[2024-05-25] MEDS: BENZOCAINE/MENTHOL (CHLORASEPTIC ) LOZENGE MM PRN (17:38)
[2024-05-25] MEDS: guaiFENesin 600 MG TABLET.ER (FP) PO ONE (19:08)
[2024-05-25] MEDS: guaiFENesin 600 MG TABLET.ER (FP) PO SCH (22:40)
[2024-05-26 09:44] VITALS: BP 102/71; PULSE 77; RESP 18; TEMP 98.4
[2024-05-26] MEDS ORDERED: methaDONE 80 MG, methaDONE 10 MG PO ONE (10:00)
[2024-05-26] MEDS: methaDONE HCL 40 MG DISPERSABLE TABLET PO ONE (11:09)
== END 2024-05-26 10:15 | disposition home or self-care (01) | DRG 773 ==
LOC: YASAS 23:20 → Y6N 05-20 01:18 → UNDOADMIN 05-20 01:18
PROVIDERS: ADMIT Allergy & Immunology; ATTEND Allergy & Immunology
PROC: HZ2ZZZZ Detoxification Services for Substance Abuse Treatment (ICD-10-PCS; principal; 2024-05-20)
DX: F11.23 Opioid dependence with withdrawal (principal); F13.20 Sedative, hypnotic or anxiolytic dependence, uncomplicated; F14.20 Cocaine dependence, uncomplicated; F15.10 Other stimulant abuse, uncomplicated; F17.210 Nicotine dependence, cigarettes, uncomplicated; F39 Unspecified mood [affective] disorder; F32.A Depression, unspecified; I73.00 Raynaud's syndrome without gangrene; M06.00 Rheumatoid arthritis without rheumatoid factor, unspecified site; F19.282 Other psychoactive substance dependence with psychoactive substance-induced sleep disorder; Z62.810 Personal history of physical and sexual abuse in childhood; Z91.410 Personal history of adult physical and sexual abuse; Z63.8 Other specified problems related to primary support group; Z63.0 Problems in relationship with spouse or partner; Z86.11 Personal history of tuberculosis; Z87.19 Personal history of other diseases of the digestive system; Z88.1 Allergy status to other antibiotic agents
CPT/HCPCS: 36415; 80053; 80305; 80307; 81025; 85027; 86780

== ENCOUNTER 2024-08-14 19:55 | Inpatient (IN) | payer OTHER ==
[2024-08-14 20:28] VITALS: BMI 21.4
[2024-08-14] MEDS ORDERED: NICOTINE POLACRILEX 2 MG LOZENGE BC PRN (20:44)
[2024-08-14] MEDS ORDERED: ONDANSETRON *ODT* 4 MG TABLET SL PRN (20:44)
[2024-08-14] MEDS ORDERED: BENZOCAINE/MENTHOL (CHLORASEPTIC ) LOZENGE MM PRN (20:44)
[2024-08-14] MEDS ORDERED: ACETAMINOPHEN 325 MG TABLET (FP) PO PRN (20:44)
[2024-08-14] MEDS ORDERED: IBUPROFEN 600 MG TABLET (FP) PO PRN (20:44)
[2024-08-14] MEDS ORDERED: IBUPROFEN 400 MG TABLET (FP) PO PRN (20:44)
[2024-08-14] MEDS ORDERED: BISMUTH SUBSALICYLATE 524 MG/30 ML PO PRN (20:44)
[2024-08-14] MEDS ORDERED: MAGNESIUM HYDROX 2400MG/30ML ORAL SUSPENSION 30 ML CUP PO PRN (20:44)
[2024-08-14] MEDS ORDERED: POLYETHYLENE GLYCOL (HEALTHYLAX) 3350 17 GM PACKET PO PRN (20:44)
[2024-08-14] MEDS ORDERED: DICYCLOMINE HCL 10 MG CAPSULE PO PRN (20:44)
[2024-08-14] MEDS ORDERED: NALOXONE HCL 0.4 MG/ML VIAL IM PRN (20:44)
[2024-08-14] MEDS ORDERED: LOPERAMIDE HCL 2 MG CAPSULE PO PRN (20:44)
[2024-08-14] MEDS ORDERED: BENZONATATE 200 MG CAPSULE PO PRN (20:44)
[2024-08-14] MEDS ORDERED: NALOXONE (NARCAN) HCL 4 MG/0.1 ML SPRAY NS PRN (20:44)
[2024-08-14] MEDS ORDERED: MAG HYDROX/AL HYDROX/SIMETH 30 ML UNIT-DOSE CUP PO PRN (20:44)
[2024-08-14] MEDS ORDERED: P-EPHED 60MG/TRIPROLIDI 2.5MG TABLET PO PRN (20:44)
[2024-08-14] MEDS ORDERED: cloNIDine HCL 0.1 MG TABLET PO PRN (20:45)
[2024-08-14] MEDS: THIAMINE 100 MG TABLET PO SCH (21:59)
[2024-08-14] MEDS: MELATONIN 5 MG TABLETS PO SCH (21:59)
[2024-08-14] MEDS: SULFAMETHOXAZOLE/TRIMETHOPRIM 800MG/160MG D.S. TABLET PO SCH (21:59)
[2024-08-14] MEDS: METHOCARBAMOL 500 MG TABLET PO PRN (21:59)
[2024-08-14] MEDS: methaDONE HCL 10 MG TABLET (FOR DETOX USE ONLY) PO ONE (22:00)
[2024-08-15] MEDS: methaDONE HCL 10 MG TABLET PO ONE (09:17)
[2024-08-15] MEDS: cloNIDine HCL 0.1 MG TABLET PO SCH (09:17)
[2024-08-15] MEDS: PRENATAL VITAMINS W/ FOLIC ACID TABLET (FP) PO SCH (09:17)
[2024-08-15] MEDS: TOPIRAMATE 25 MG TABLET PO SCH (09:17)
[2024-08-15] MEDS ORDERED: GABAPENTIN 300 MG CAPSULE PO SCH (10:15)
[2024-08-15] MEDS: GABAPENTIN 300 MG CAPSULE PO SCH (10:38)
[2024-08-15] MEDS ORDERED: methaDONE HCL 10 MG TABLET PO PRN (10:51)
[2024-08-15 11:19] LABS: HEMATOCRIT 28.7 % (32.4-45.2); HEMOGLOBIN 9.3 GM/dL (10.7-15.3); MCH 25.7 pg (25.7-33.7); MCHC 32.4 g/dl (32.0-36.0); MEAN CELL VOLUME 79.5 fl (80-96); MEAN PLT VOLUME 7.9 fl (7.5-11.1); PLATELET COUNT 411 10^3/uL (134-434); RBC 3.61 M/mm3 (3.60-5.2); RDW 16.4 % (11.6-15.6); WHITE BLOOD COUNT 7.4 K/mm3 (4.0-10.0)
[2024-08-15 11:45] LABS: POTASSIUM 3.8 mmol/L (3.5-5.1)
[2024-08-15 12:00] LABS: CALCIUM 8.9 mg/dL (8.5-10.1)
[2024-08-15 12:01] LABS: ALBUMIN 2.9 g/dl (3.4-5.0)
[2024-08-15 12:04] LABS: CREATININE 1.1 mg/dL (0.55-1.3)
[2024-08-15 12:05] LABS: BILIRUBIN,TOTAL 0.2 mg/dL (0.2-1); TOT PROT 6.5 g/dl (6.4-8.2)
[2024-08-15] MEDS: traZODone HCL 100 MG TABLET (FP) PO SCH (22:51)
[2024-08-16] MEDS ORDERED: methaDONE HCL 10 MG TABLET (FOR DETOX USE ONLY) PO ONE (10:00)
[2024-08-16] MEDS: TOPIRAMATE 25 MG TABLET PO SCH (10:29)
[2024-08-16] MEDS: methaDONE 40 MG, methaDONE 10 MG PO ONE (10:30)
[2024-08-16] MEDS: guaiFENesin 600 MG TABLET.ER (FP) PO PRN (17:08)
[2024-08-17] MEDS ORDERED: cloNIDine HCL 0.1 MG TABLET PO PRN
[2024-08-17 09:42] VITALS: RESP 16
[2024-08-17] MEDS: methaDONE 40 MG, methaDONE 20 MG PO ONE (09:58)
[2024-08-17] MEDS: NICOTINE POLACRILEX 2 MG GUM BUC PRN (12:46)
[2024-08-17 13:28] VITALS: BP 132/92; PULSE 76; TEMP 98.2
[2024-08-18] MEDS ORDERED: methaDONE HCL 10 MG TABLET (FOR DETOX USE ONLY) PO ONE (10:00)
[2024-08-18] MEDS ORDERED: methaDONE 40 MG, methaDONE 30 MG PO ONE (10:00)
[2024-08-19] MEDS ORDERED: methaDONE HCL 40 MG DISPERSABLE TABLET PO ONE (10:00)
[2024-08-20] MEDS ORDERED: methaDONE 80 MG, methaDONE 10 MG PO ONE (10:00)
== END 2024-08-17 14:21 | disposition left against medical advice (07) | DRG 770 ==
LOC: YASAS 19:55 → Y6N 20:49
PROVIDERS: ADMIT Allergy & Immunology; ATTEND Surgery
PROC: HZ2ZZZZ Detoxification Services for Substance Abuse Treatment (ICD-10-PCS; principal; 2024-08-14)
DX: F11.23 Opioid dependence with withdrawal (principal); F14.20 Cocaine dependence, uncomplicated; F17.210 Nicotine dependence, cigarettes, uncomplicated; F19.282 Other psychoactive substance dependence with psychoactive substance-induced sleep disorder; F32.9 Major depressive disorder, single episode, unspecified; K21.9 Gastro-esophageal reflux disease without esophagitis; M06.00 Rheumatoid arthritis without rheumatoid factor, unspecified site; Z62.810 Personal history of physical and sexual abuse in childhood; Z91.410 Personal history of adult physical and sexual abuse; Z63.0 Problems in relationship with spouse or partner; Z63.8 Other specified problems related to primary support group; Z56.0 Unemployment, unspecified; Z59.00 Homelessness unspecified; Z88.1 Allergy status to other antibiotic agents
CPT/HCPCS: 36415; 80053; 80305; 80307; 85027; 86780; 93005; 93010